=== PATIENT | female | born 1990 | race Caucasian/White ===

== ENCOUNTER → 2017-09-17 16:48 | Outpatient (CLI) | payer OTHER, SELFPAY ==
[2017-09-23 06:07] LABS: Almond <0.10 kU/L (Class 0); Apple <0.10 kU/L (Class 0); Beef <0.10 kU/L (Class 0); Carrot <0.10 kU/L (Class 0); Chicken <0.10 kU/L (Class 0); Clam <0.10 kU/L (Class 0); Codfish <0.10 kU/L (Class 0); Corn <0.10 kU/L (Class 0); Egg, White <0.10 kU/L (Class 0); Egg, Whole <0.10 kU/L (Class 0); Garlic <0.10 kU/L (Class 0); Gluten <0.10 kU/L (Class 0); Milk (Cow) <0.10 kU/L (Class 0); Peanut <0.10 kU/L (Class 0); SESAME SEED <0.10 kU/L (Class 0); Shrimp <0.10 kU/L (Class 0); Soybean <0.10 kU/L (Class 0); Strawberry <0.10 kU/L (Class 0); Tuna <0.10 kU/L (Class 0); Walnut, (Food) <0.10 kU/L (Class 0); Wheat <0.10 kU/L (Class 0); Yeast <0.10 kU/L (Class 0)
[2017-09-23 08:53] LABS: Banana <0.10 kU/L (Class 0)
[2017-09-23 10:26] LABS: Tomato <0.10 kU/L (Class 0); Wheat <0.10 kU/L (Class 0)
[2017-09-23 11:02] LABS: Immunoglobulin E 3 IU/mL (0-100)
[2017-09-29 14:58] LABS: Milk (Cow) <0.10
[2017-09-29 14:59] LABS: Soybean <0.10
== END ==
PROVIDERS: Family Provider Internal Medicine; PCP Internal Medicine; Visit Provider Otolaryngology Otolaryngology/Facial Plastic Surgery
DX: T78.40XA Allergy, unspecified, initial encounter (principal)
CPT/HCPCS: 36415; 82785; 86003; 86005

== ENCOUNTER → 2018-10-29 16:23 | Outpatient (CLI) | payer OTHER, SELFPAY ==
[2014-06-29 21:51] VITALS: BMI 18.0
[2018-11-03 14:41] LABS: HPV Reflexed? NOT INDICATED
== END ==
PROVIDERS: PCP Internal Medicine; Visit Provider Obstetrics & Gynecology
DX: Z12.4 Encounter for screening for malignant neoplasm of cervix (principal)
CPT/HCPCS: 88175; G0145

== ENCOUNTER → 2018-12-11 09:27 | Outpatient (CLI) | payer OTHER, SELFPAY ==
[2018-12-11 10:37] LABS: hCG Titer Quant., Serum < 1 mIU/mL (1-3)
== END ==
PROVIDERS: Visit Provider Obstetrics & Gynecology
DX: N97.0 Female infertility associated with anovulation (principal)
CPT/HCPCS: 36415; 84702

== ENCOUNTER 2021-10-04 07:04 | Outpatient (CLI) | payer OTHER, SELFPAY ==
[2021-10-04 08:55] LABS: Hematocrit 41.1 % (37-47); Hemoglobin 13.5 g/dL (12.0-15.0); Mean Corp Hgb Conc 32.8 g/dL (32-36); Mean Corpuscular Volume 85.1 fL (81-99); Platelet Count 189 K/mm3 (150-450); RBC Distribution Width CV 13.4 % (11.6-14.6); RBC Distribution Width SD 41.8 fl (35.1-43.9); Red Blood Count 4.83 M/mm3 (4.2-5.4); White Blood Count 4.3 K/mm3 (4.4-11.0)
[2021-10-04 09:29] LABS: Estradiol 66.6 pg/mL; Follicle Stimulating Hormone 6.3 mIU/mL; Prolactin 7.4 ng/mL; Thyroid Stim Hormone (TSH) 1.38 uIU/mL (0.358-3.74)
[2021-10-10 16:17] LABS: 17-Hydroxyprogesterone 53 ng/dL (.)
== END 2021-10-04 23:59 | disposition home or self-care (01) ==
PROVIDERS: Referring Provider Obstetrics & Gynecology; Visit Provider Obstetrics & Gynecology
DX: E28.1 Androgen excess (principal); L70.8 Other acne; E28.8 Other ovarian dysfunction; N92.0 Excessive and frequent menstruation with regular cycle
CPT/HCPCS: 36415; 82533; 82627; 82670; 83001; 83498; 84146; 84270; 84403; 84443; 85027; 82626

== ENCOUNTER 2021-10-22 07:06 | Outpatient (CLI) | payer OTHER, SELFPAY ==
[2021-10-22 08:43] LABS: Estradiol 72.8 pg/mL
[2021-10-22 09:04] LABS: Progesterone Level 17.61 ng/mL (See Comment)
== END 2021-10-22 23:59 | disposition home or self-care (01) ==
LOC: LAB 07:07
PROVIDERS: Referring Provider Obstetrics & Gynecology; Visit Provider Obstetrics & Gynecology
DX: E28.8 Other ovarian dysfunction (principal)
CPT/HCPCS: 36415; 82670; 84144

== ENCOUNTER → 2021-12-28 | Outpatient (CLI) | payer OTHER, SELFPAY ==
--- NOTE | 2021-12-28 10:45 | MRI_ITS ---
STUDY: MR PELVIS WITH T WITHOUT CONTRAST REASON FOR EXAM: Female, 31 years old. PELVIC PAIN ,ENDOMETRIOSIS TECHNIQUE: Standardized fat and water weighted pulse sequences were obtained in all 3 orthogonal planes, pre-and post contrast administration. IV 10cc dotarem was administered for the contrast portion of the examination. Gentle contrast inserted into the vaginal vault prior imaging. COMPARISON: None. FINDINGS: Normal urinary bladder. Hollow viscus structures are unremarkable in their visualized extent. There is no pelvic fluid. There is no pelvic mass lesion or lymphadenopathy. Uterus is anteverted. The uterus measures 3.6 x 3.8 x 6.6 cm. Endometrial complex measures 7.6 mm in thickness and is homogenous throughout the uterine canal. No cervical masses are seen. Small nabothian cyst present. There are follicles of the bilateral ovaries without dominant cyst or complex lesion. No adnexal cyst or dilated fallopian tubes. Smooth contours of the vaginal vault without discrete focal mass. No abnormal contrast enhancement. Normal visualized pelvic arteries. Normal osseous structures. Normal abdominal wall. MRI/Pelvis W/WO Contrast IMPRESSION: 1. Normal female pelvis MRI. Electronically Signed: Dg Ochoa MD (Brooks) at 8:29 EDT Reading Location ID and State: / [place] , Service support ,
== END | disposition home or self-care (01) ==
PROVIDERS: Visit Provider Obstetrics & Gynecology
DX: R10.2 Pelvic and perineal pain (principal); N80.9 Endometriosis, unspecified; N92.0 Excessive and frequent menstruation with regular cycle; N94.6 Dysmenorrhea, unspecified
CPT/HCPCS: 72197; A9575

== ENCOUNTER 2022-01-11 11:07 | Day surgery (SDC) | payer OTHER, SELFPAY ==
[2022-01-08 10:34] LABS: Hematocrit 39.2 % (37-47); Hemoglobin 13.1 g/dL (12.0-15.0); Mean Corp Hgb Conc 33.4 g/dL (32-36); Mean Corpuscular Hgb 28.5 pg (27.0-32.0); Mean Corpuscular Volume 85.4 fL (81-99); Mean Platelet Vol. 11.4 fl (6.2-12.0); Platelet Count 212 K/mm3 (150-450); RBC Distribution Width CV 13.4 % (11.6-14.6); Red Blood Count 4.59 M/mm3 (4.2-5.4); White Blood Count 7.4 K/mm3 (4.4-11.0)
[2022-01-08 10:47] LABS: Prothrombin Time (Protime)PT. 12.8 SECONDS (11.7-14.9)
[2022-01-08 10:48] LABS: Partial Thromboplast Time 28.5 Seconds (24.1-36.2)
[2022-01-08 11:45] LABS: AST(SGOT) 13 U/L (15-37); Alanine Aminotransfer ALT/SGPT 18 U/L (13-56); Albumin, Serum 4.5 g/dL (3.2-5.0); Alkaline Phosphatase 57 U/L (45-117); Bilirubin, Direct 0.14 mg/dL (0.00-0.30); Globulin 2.8 g/dL (2.2-4.2); Protein, Total 7.3 g/dL (6.4-8.2)
[2022-01-11] VITALS (8 sets, daily range): BP systolic 107–136; BP diastolic 53–80; PULSE 70–92; RESP 16–18; TEMP 36.6–37.1; O2SAT 99–100; BMI 17.7
--- NOTE | 2022-01-11 | MISC_PTH ---
PATIENT: DEAN DORSEY LOC: [facility] [place] U#:[id number] AGE/SX: 31/F ROOM: RE01/11/[address]: Dr. nAa Sarabia MD : 1990 BED: DIS: 01/11/2022 SPEC #: [id number] RECD: 01/14/22 06:41 STATUS: MERI REQ #: [id number] RAJESH: 01/11/22 00:[address]: Ana Berger DEPT: SURGICAL PATHOLOGY RECD BY: Efe Stanley ENTERED: 01/14/22 08:57 SP TYPE: [facility] [place]: Bruna Primary Care Phys Tissues: A - Peritoneum, NOS B - Peritoneum, NOS C - Peritoneum, NOS D - Peritoneum, NOS Procedures: Surgery Specimen Level IV HEADER OPERATION: Diagnostic laparoscopy with surgical treatment of endometriosis PRE-OP DIAGNOSIS: Dysmenorrhea, dyspareunia, endometriosis, pelvic and perineal pain TISSUE SUBMITTED: A ? Left posterior broad ligament endometriosis, B ? Ureteral peritoneal endometriosis, C ? Right uterosacral endometriosis, D ? Anterior cul-de-sac endometriosis MICROSCOPIC DIAGNOSIS A. Left posterior broad ligament endometriosis, biopsy: Endometriosis. B. Ureteral peritoneal endometriosis, biopsy: Endometriosis. C. Right uterosacral endometriosis, biopsy: Endometriosis. D. Anterior cul-de-sac endometriosis, biopsy: Focal changes suspicious for endometriosis. SJ:beena 01/15/2022 COMMENT Clinical correlation and appropriate follow up are necessary. MICROSCOPIC DESCRIPTION Slides are reviewed. GROSS DESCRIPTION A - Received in fixative is one container labeled with the patient's name and designated left posterior broad ligament endometriosis. The specimen consists of two pieces of pink, congested soft tissue that in aggregate measure 1.5 x 1.2 x 0.3 cm. The specimen is totally submitted in one cassette. B - Received in fixative is one container labeled with the patient's name and designated ureteral peritoneal endometriosis. The specimen consists of a piece of pink, congested soft tissue measuring 2 x 1 x 0.2 cm. The specimen is totally submitted in one cassette. C - Received in fixative is one container labeled with the patient's name and designated right uterosacral endometriosis. The specimen consists of a piece of pink, congested soft tissue measuring 1.8 x 1 x 0.2 cm. The specimen is totally submitted in one cassette. D - Received in fixative is one container labeled with the patient's name and designated anterior cul-de-sac endometriosis. The specimen consists of one irregular fragment of light henderson soft tissue that measures 0.4 x 0.4 x 0.2 cm. The specimen is totally submitted in one cassette. / SJ:rg 01/14/2022 TC:5 CPT: 20544 x4
--- NOTE | 2022-01-11 07:45 | HP.PCM.OB_ITS ---
History and Physical Date of Admission: 01/11/22 Surgical History and Physical Date: 01/08/2022 Name: DEAN DORSEY Age: 31 Date of : 1990 Dean Dorsey, a 31 year old female 0 0 0 0 0, presents for Diagnostic laparoscopy, surgical treatment of endometriosis on January 11, 2022 for history of dysmenorrhea and dyspareunia. MEDICATIONS HISTORY: Patient is also takin. ibuprofen 600 mg tablet, 1 tab po q 12hrs PRN 2. Ventolin HFA 90 mcg/actuation aerosol inhaler, As Directed ALLERGIES: NKA Infections - Chicken pox Illnesses - allergies, asthma and ADD Accidents - no injuries of consequence Hospitalizations - None Review of Systems: GENERAL - Denies fever, or chills SKIN - Denies skin changes EYES - Denies visual changes EARS - Denies difficulty hearing NOSE - Denies nasal congestion or bleeding MOUTH - Denies sore throat or difficulty swallowing NECK - Denies pain or swelling RESPIRATORY - Denies shortness of breath or wheezing CARDIOVASCULAR - Denies palpitations or chest pain GASTROINTESTINAL - Denies nausea, vomiting, diarrhea, constipation GENITOURINARY - irregular bleeding and pain MUSCULOSKELETAL - Denies joint or muscle pain NEUROLOGICAL - Denies localized numbness or weakness PSYCHIATRIC - Denies depression or anxiety ENDOCRINE - Denies heat or cold intolerance, weight loss or gain HEMATO-IMMUNOLOGIC - Denies excesive bleeding with cuts SOCIAL HISTORY: Alcohol Use - drinks occasionally Smoking - denies use Diet - no special diet Lifestyle - Exercise - active Seat Belt Use - always Employer - [employer] Job Description - customer service Illicit Drug Use - denies use of street drugs Sexual Activity - Hours Worked - 40 Control - - FAMILY HISTORY: Maternal history of Heart Disease. Paternal history of DM II and Heart Disease. MENSTRUAL HISTORY: LMP Known?- ApproximateAmount/Duration - 3-10 days, Regularity - Regular, Frequency - 28 days, LMP - 12/17/21, Age Onset Menarche - 13 PAST PREGNANCIES: Total Pregnancies - 0; Full Term Pregnancies - 0; Premature - 0; Abortions, Induced - 0; Abortions, Spontaneous - 0; Ectopics - 0; Multiple Births - 0; Living Children - 0 SURGICAL HISTORY: 1. [place], 2007 ; Dr. Wise - 2. [place] teeth removed 08/2009 ; - PHYSICAL EXAM BP- 140/86 Sitting, Right arm, regular cuff Weight- 111.61557 lbs Height- 61.5 inch BMI:[id number] CONSTITUTIONAL - NAD, well nourished, and well developed SKIN - No rash, lesions, or ulcers HEENT - Normocephalic, PERRLA, EOMI LUNGS - CTA x2 without wheezes, crackles or rales CARDIAC - Regular rate and rhythm without rubs, murmurs, or gallops EXTREMITIES - No edema or calf tenderness NEUROLOGICAL - normal gait, normal balance, normal motor PSYCHIATRIC - A and O to time, place, person, mood and affect ASSESSMENT/PLAN: 1. Dysmenorrhea, Dyspareunia, Endometriosis, Unspecified and Pelvic And Perineal Pain Suspect endometriosis Recent MRI with no evidence of deep pelvic endometriosis Plan for diagnostic laparoscopy, surgical treatment of endometriosis as indicated Procedural r/b/i/a reviewed Consents signed Pre and postop instructions reviewed Assessment & Plan Assessment/Plan (1) Dysmenorrhea: PLAN: Plan for diagnostic laparoscopy and surgical treatment of endometriosis as indicated (2) Dyspareunia in female:
[2022-01-11 11:49] LABS: Internal QC Validated? YES +Cl - CLEAR BKGD; Pregnancy, Urine Negative Negative
[2022-01-11] MEDS: Lactated Ringers 1,000 ML 125 ML IV ×2 (12:06→16:30)
[2022-01-11] MEDS: Ipratropium/Albuterol Sulfate 3 ML AMPUL.NEB INHALATION (13:19)
[2022-01-11] MEDS: Bupivacaine Mpf 0.5% 30 ML VIAL (14:45)
--- NOTE | 2022-01-11 17:08 | DCINST_ITS ---
Discharge Instructions Diet Discharge Diet: No restrictions Activity Discharge Activity: Return to Normal Activity May resume sexual activity in: 4 weeks Lifting Restrictions: 10 lb Dressing / Incision Call your doctor if your incision/area has: Continuous Slow Oozing, Sudden Increased Bleeding, Increased Pain/ Swelling, Increased Redness, Foul Smelling Discharge and Swelling at the incision site Call your doctor if you observe: Fever of 101 or Higher, Inability to urinate, Inability to have a bowel movement, Shortness of breath, Chest pain, Calf dis comfort and Uncontrolled pain Remove Dressing in: 2 days Cleanse incision/area with: Soap & Water Follow Up Care Please Follow Up With: Ana Berger MD When: 1-2 weeks Test Results: Test results from this visit will be discussed in further detail at your follow- up appointment, if applicable. Discharge Plan Admission Primary Reason for Your Visit: Laparoscopy for Endometriosis Attending Provider: Ana Berger Primary Care Provider: Jojo PhysicianBruna Primary Instructions Patient Instructions: Endometriosis Lap Tx Dc Discharge Orders/Prescriptions Prescriptions: No Action zinc 15 mg Tablet 15 mg PO DAILY ibuprofen 200 mg Tablet 200 mg PO Q6H PRN (Reason: Pain) chaste tree 20 mg Tablet 40 mg PO DAILY pantothenic acid (vit B5) 250 mg Capsule PO DAILY Fish Oil Capsule 2,000 mg PO DAILY acetaminophen 325 mg Capsule 650 mg PO Q6H PRN (Reason: Pain) albuterol sulfate 90 mcg/actuation Aerosol Powdr Breath Activated 1 inh INHALATION Q6H PRN (Reason: Pain) Referrals / Follow Up: Care Physician,No Primary [Primary Care Provider] - Disposition Disposition (needs filled in before D/C Order can be placed): Home, Self Care
--- NOTE | 2022-01-11 17:10 | PCM.OPRPT ---
Problems Associated Problem List Diagnoses (1) Endometriosis determined by laparoscopy: (2) Dyspareunia in female: (3) Dysmenorrhea: Report of Operation Date of Procedure: 01/11/22 Pre-Operative Diagnosis: 1. Dysmenorrhea 2. Dyspareunia Post-Operative Diagnosis: 1. Dysmenorrhea 2. Dyspareunia 3. Endometriosis Surgery/Procedure Performed:: 1. Diagnostic laparoscopy 2. Peritoneal biopsy with excision of endometriosis 3. Ureterolysis 4. Fulgaration of endometriosis 5. Chromotubation Description of Surgical Findings:: Right ovarian fossa peritoneal endometriosis extending to posterior broad ligament, left ovarian fossa, ureteral peritoneum/uterosacral ligament with cystic endometriosis implants, small endometriosis cysts on ovary, anterior culdesac endometriosis, posterior culdesac endometriosis Surgeon: Ana Berger transfer controller: Edel Casillas Type of Anesthesia: General Anesthesiologist: Jony Chow Specimen's removed: 1. right posterior broad ligament/ovarian fossa endometriosis 2. right utereral/uterosacral ligament endometriosis 3. Left ovarian fossa peritoneum 4. Anterior culdesac endometriosis Estimated Blood Loss (mL): 10 Fluids Replaced: 1200 ml Description of Procedure: 31yo nulligravid with history of chronic pelvic pain and worsened dysmenorrhea over 2 years. She poorly tolerated hormonal contraception in the past and desired . She was counseled regarding management options and opted to proceed with diagnostic laparoscopy, surgical treatment of endometriosis as indicated. Procedural risks, benefits, indications and alternatives were reviewed with informed consent obtained. Patient was brought to the operating room and sign in performed. She was placed dorsal supine and induced under general anesthesia and intubated. She was repositioned into dorsal lithotomy and examination under anesthesia was performed. The perineum and abdomen were prepped and draped in sterile fashion.? The patient was placed into high lithotomy and a speculum placed vaginally. The uterus was sounded and a ZUMI uterine manipulator was placed and secured. The tenaculum and speculum were removed and the patient placed into low lithotomy. Attention was turned to the abdomen and 0.5% marcaine injected subcutaneously at the inferior umbilicus. An incision was made here and Veress needle introduced with successful hang drop and no aspirate. The abdomen was insufflated to 12 mmHg. The Veress needle was removed and a 5mm port introduced abdominally with laparoscopic guidance. A TAP block was performed with laparoscopic guidance in the left lower quadrant and incision placed with transillumination. A second 5mm port was placed here and the abdomen and pelvis inspected with evidence of pelvic endometriosis including small bilateral endometriosis cysts on the ovaries, uterosacral ligament endometriosis cysts, posterior and anterior culdesac and bilateral ovarian fossa endometriosis, left posterior broad ligament endometriosis. The tubes and ovaries were otherwise normal in appearance. Five mm ports were subsequently placed in the right lower quadrant and suprapubically after administering marcaine. The patient was placed into Trendelenberg. The left ureteral course was identified and I proceeded with removal of the left ovarian fossa peritoneum and adjacent Wes Masters window extending into the posterior broad ligament using electrocoagulation on the J hook, as well as blunt dissection with left ureterolysis performed.? Distal and proximal left uterosacral ligament peritoneal excision with associated endometriosis implants were also removed with the ureter visualized during the excision and dissection. An EEA sizer was placed? then removed to further delineate the margins of the posterior culdesac endometriosis. Due to proximity to the rectum these lesions were electrocoagulated. The right ureter was identified and the right ovarian fossa and right uterosacral peritoneum and its endometriosis was excised using electrocoagulation of the margins and blunt dissection. An anterior midline adhesion from the anterior culdesac endometriosis to the anterior uterus was lysed and small superficial clear micellar anterior culdesac endometriosis was electrocoagulated. A deeper powder burn lesion at the anterior culdesac peritoneum was excised. The sub centimeter ovarian endometriosis cysts were electrocoagulated, one on the left and three on the right, with further electrocoagulation of the small cyst beds. The left posterior broad ligament peritoneum edge and left uterosacral peritoneal edges were reapproximated with closure of the left ovarian fossa using 3-0 V-lock suture. Similarly, the right ovarian fossa and uterosacral ligament peritoneal edges were reapproximated. Chromotubation was subsequently performed with bilateral? tubal spill of dilute methylene blue into the abdomen. The abdomen was irrigated and suctioned. Interceed was placed over the sutured sites and the posterior culdesac. The procedure was complete. The abdomen was desufflated and the ports removed. The skin was closed with 4-0 Monocryl by the CAD DRAFTSMAN under my supervision and derma kitchen placed over the incisions. The cevallos catheter and uterine manipulators were removed. The patient was placed into dorsal supine, awakened, extubated and transferred to the recovery room without complication.? Complications None Admit VTE Documentation VTE Present on Admission: No VTE Mechan Device Prophylaxis: SCD's VTE Pharm Prophylaxis ordered?: No
--- NOTE | 2022-01-11 18:31 | SUR.PHASEI ---
HEMATOLOGY NURSE EDUCATOR Marti signed into PACU computer as pt arrived to PACU. Computer kept Marline Key RN logged in, but it was not noted until pt was being discharged from PACU, and therefore, PACU charting has Marline's name attached to it. Marti FITCH was the HEMATOLOGY NURSE EDUCATOR assessing pt, caring for pt and charting.
== END 2022-01-11 19:17 | disposition home or self-care (01) ==
LOC: SDC 11:09 → AC 11:11
PROVIDERS: Anesthesiology; Visit Provider Obstetrics & Gynecology
PROC: (CPT 49320; principal; 2022-01-11 12:45)
DX: N94.6 Dysmenorrhea, unspecified (principal); N80.0 Endometriosis of uterus; N83.209 Unspecified ovarian cyst, unspecified side; J45.909 Unspecified asthma, uncomplicated; R10.2 Pelvic and perineal pain; N94.10 Unspecified dyspareunia; N80.3 Endometriosis of pelvic peritoneum
CPT/HCPCS: 58662; 58350; 00840; 80076; 81025; 85027; 85610; 85730; 86850; 86900; 86901; 88305; 94640; J7120; J2405; Q9968

== ENCOUNTER → 2024-02-04 | Outpatient (CLI) | payer OTHER, SELFPAY ==
[2024-02-04 08:53] LABS: Absolute Lymphocyte Count 1.59 X10^3/uL (0.83-4.51); Absolute Neutrophil Count 2.2 X10^3/uL (2.0-7.7); Basophil# 0.04 X10^3/uL; Basophil% 0.9 % (0-1); Eosinophil# 0.09 X10^3/uL; Eosinophils% 2.1 % (0-5); Hematocrit 40.9 % (37-47); Hemoglobin 13.7 g/dL (12.0-15.0); Lymphocyte # 1.59 X10^3/ul (0.83-4.51); Lymphocyte % 37.3 % (19-41); Mean Corp Hgb Conc 33.5 g/dL (32-36); Mean Corpuscular Hgb 28.3 pg (27.0-32.0); Mean Corpuscular Volume 84.5 fL (81-99); Mean Platelet Vol. 11.6 fl (6.2-12.0); NRBC Flagged by Analyzer 0 % (0-5); Neutrophil # 2.23 X10^3/uL (2.7-7.7); Neutrophil % 52.5 % (47-70); Platelet Count 162 K/mm3 (150-450); RBC Distribution Width SD 39.8 fl (35.1-43.9); Red Blood Count 4.84 M/mm3 (4.2-5.4); White Blood Count 4.3 K/mm3 (4.4-11.0)
[2024-02-04 09:22] LABS: ALB/GLOB Ratio 1.6 RATIO (0.9-2.4); AST(SGOT) 19 U/L (15-37); Alanine Aminotransfer ALT/SGPT 14 U/L (13-56); Albumin, Serum 4.5 g/dL (3.2-5.0); Alkaline Phosphatase 67 U/L (45-117); Anion Gap 9 (5-15); BUN 10 mg/dL (7-18); BUN/Creat Ratio 16.4 RATIO (10-20); Calcium,Total 9.5 mg/dL (8.5-10.1); Chloride 106 mmol/L (98-107); Cholesterol 160 mg/dL (200); Creatinine, Serum 0.61 mg/dL (0.55-1.02); EST Glomerular Filtration Rate 120 mL/min (>60); Est Glom Filt Rate - Afr Amer 145 mL/min (>60); Globulin 2.8 g/dL (2.2-4.2); Glucose 84 mg/dL (74-106); High Density Lipoprotein 74 mg/dL; Potassium 3.6 mmol/L (3.5-5.1); Protein, Total 7.3 g/dL (6.4-8.2); Sodium Level 137 mmol/L (136-145); Triglycerides 46 mg/dL; Very Low Density Lipoprotein 9 mg/dL (5-40)
[2024-02-04 09:40] LABS: Vitamin D,25 Hydroxy 26.6 ng/mL
== END | disposition home or self-care (01) ==
PROVIDERS: PCP Nurse Practitioner Family; Referring Provider Nurse Practitioner Family; Visit Provider Nurse Practitioner Family
DX: Z00.01 Encounter for general adult medical examination with abnormal findings (principal); E55.9 Vitamin D deficiency, unspecified
CPT/HCPCS: 36415; 80053; 80061; 82306; 85025

== ENCOUNTER → 2024-02-11 | Outpatient (CLI) | payer OTHER, SELFPAY ==
--- NOTE | 2024-02-11 07:42 | US_ITS ---
STUDY: ABDOMINAL ULTRASOUND REASON FOR EXAM: Female, 33 years old. ASSESS GALLBLADDER - right upper quadrant pain. TECHNIQUE: Transabdominal ultrasound was performed with real-time and static calix scale imaging. TECHNICAL QUALITY: Adequate. COMPARISON: None. FINDINGS: Liver: The liver measures 16.5 cm. There is normal echogenicity of the liver. The bile ducts are within normal limits. There is hepatic color flow. The direction of portal flow is hepatopetal. There is no demonstrated mass lesion. Gallbladder: Normal distended gallbladder. The gallbladder wall measures 2.4 mm. There is a negative sonographic Arevalo''s sign. There is no pericholecystic fluid. There are no gallstones. Findings suggestive of a 3 mm x 4 mm x 3 mm gallbladder polyp adherent to the gallbladder wall. Common Bile Duct (C.B.D.): The common bile duct measures 4.9 mm. Pancreas: Normal size of the head, body and tail of the pancreas. There is normal echogenicity of the pancreas. There is no demonstrated pancreatic mass or cyst. Spleen: Normal size of the spleen. The spleen measures 9.8 cm x 4.8 cm x 3.6 cm. Right Kidney: Normal size of the right kidney. The right kidney measures 11.8 cm x 4.5 cm x 3.6 cm. Normal renal cortex. The right cortex measures 1.1 cm. There is no demonstrated renal mass or cyst. There is no right hydronephrosis. Left Kidney: Normal size of the left kidney. The left kidney measures 10.8 cm x 4.6 cm x 4.6 cm. Normal renal cortex. The left cortex measures 2.2 cm. There is no demonstrated renal mass or cyst. There is no left hydronephrosis. Aorta: Unremarkable I.V.C.: The IVC is patent. There is no ascites. US/Abdomen Complete IMPRESSION: Findings suggestive of a 3 mm x 3 mm x 4 mm gallbladder polyp. Electronically Signed: Jaxson Llanes MD at 14:35 EDT ,
== END | disposition home or self-care (01) ==
PROVIDERS: PCP Nurse Practitioner Family; Referring Provider Nurse Practitioner Family; Visit Provider Nurse Practitioner Family
DX: R10.11 Right upper quadrant pain (principal); K62.89 Other specified diseases of anus and rectum
CPT/HCPCS: 76700

== ENCOUNTER 2024-03-07 22:51 | Emergency (ER) | payer OTHER, SELFPAY ==
[2024-03-07 22:52] VITALS: BP 148/91; PULSE 126; RESP 20; TEMP 36.4; O2SAT 100; BMI 19.6
--- NOTE | 2024-03-07 23:10 | EX.ED.DYSGE1 ---
HPI History of Present Illness Chief Complaint: Allergic Reaction [facility] Medical History (Updated 01/11/22 @ 17:[address] Ana Sarabia MD) Wears glasses Wears contact lenses Alcohol use Easy bruising Migraine headache Non-smoker Asthma Seasonal allergies PONV (postoperative nausea and vomiting) Home Medications ?Medication ?Instructions ?Recorded ?Last Taken ?Type acetaminophen 325 mg capsule 650 mg PO Q6H PRN Pain 01/07/22 Unknown History albuterol sulfate 90 mcg/actuation 1 inh inhalation Q6H PRN Pain 01/07/22 01/11/22 History breath activated powder inhaler chaste tree 20 mg tablet 40 mg PO DAILY supplement 01/07/22 Unknown History ibuprofen 200 mg tablet 200 mg PO Q6H PRN Pain 01/07/22 Unknown History omega-3 fatty acids 2,000 mg PO DAILY 01/07/22 Unknown History pantothenic acid (vit B5) 250 mg mg PO DAILY 01/07/22 Unknown History capsule zinc 15 mg tablet 15 mg PO DAILY 01/07/22 Unknown History prednisone 20 mg tablet 20 mg PO BID 03/07/24 Unknown History Allergy/AdvReac Type Severity Reaction Status Date / Time bee venom protein (honey Allergy Intermediate Other Verified 03/07/24 22:52 bee) (bee sting) Surgical History (Updated 01/07/22 @ 14:57 by Marti Martins) History of wisdom tooth extraction History of tonsillectomy Social History Smoking Status: Never smoker EXAM Physical Exam Const Vital Signs: 03/07/24 22:52 03/07/24 23:39 Temperature 97.6 F L Temperature Source Temporal Pulse Rate 126 H 73 Respiratory Rate 20 H 16 Blood Pressure 148/91 H Blood Pressure Mean 110 Pulse Ox 100 97 Oxygen Delivery Method Room Air Room [place] [facility] [place] Medical decision making narrative: HISTORY OF PRESENT ILLNESS: 33-year-old female presents concern for allergic reaction. States she was stung by bee yesterday. No she went to urgent care as prescribed prednisone. She is taking 1 today. She also took Benadryl prior to arrival. She is concerned because her throat was like it swelling and is sore. REVIEW OF SYSTEMS: Pertinent positives: Throat swelling, soreness Pertinent negatives: Drooling, difficulty breathing, abdominal pain, nausea PHYSICAL EXAM: Nursing triage notes reviewed, Vital signs reviewed Constitutional: please see mdm HENT: MMM Eyes: Pupils equal round and reactive to light, Extraocular muscles intact Neck: No stridor, no JVD, full neck ROM Lungs: Clear to auscultation, No wheezing or rales. No increased work of breathing, no conversational dyspnea, no accessory muscle use, no nasal flaring. No respiratory distress noted Heart: Regular rate and rhythm, No murmurs, No rubs and No gallops, 2+ distal pulses (radial, femoral, posterior tibial) in all extremities Abdomen: Soft, there is no tenderness, rigidity, rebound or guarding, no obvious peritoneal signs, no palpable pulsatile abdominal masses, no auscultated abdominal bruit : No CVAT Extremities: No edema Neuro: No focal neurological deficits, cranial nerves II through XII intact, 5/5 strength in all extremities. Intact sensation to light touch in all extremities, 2+ reflexes bilateral patella tendons. Normal gait. No ataxia. Skin: No rash or lesions noted MEDICAL DECISION MAKING: Chief Complaint: Evaluation for allergic reaction External records reviewed: No recent ED visits Factors affecting care: Bee allergy Social determinants of health: Denies illicit drug use History obtained from others: The patient's Consults: Pharmacy to discuss H1 histamine blockade MDM Narrative: Patient was initially tachycardic, tachypneic. Exam without evidence of stridor, drooling, urticaria. There is no respiratory distress. Patient no symptoms of nausea abdominal pain or wheezing. No signs of anaphylaxis. Given this is 33 hours after initial encounter with to be a do not suspect the patient is even suffering from severe allergic reaction. His only local swelling over the left hand. There is no signs of cellulitis. Patient was given loratadine (H1 paul), Pepcid (H2 paul) for symptomatic control. I considered the following differential diagnosis: Allergic reaction, anaphylaxis, anxiety The patient and/or family, caregivers express understanding. The patient and/or family, caregivers agrees with the plan. Shared decision making: I will have a discussion with the patient and or visitors regarding risk/benefits of further testing or admission. They will be made aware of of the risk/benefits inherent in this decision they will be given the opportunity to voice understanding. Total critical care time today provided was at least 0 minutes. This excludes separately billable procedures. Critical care time (if documented) is secondary to the patient having high probability of clinically significant/life threatening deterioration in the patient's condition which required my urgent intervention. Impression: 1. Allergic reaction 2. Bee allergy Dispo: Discharge home This note was generated with FRAMED dictation software. It may contain incorrect words, spelling, and punctuation that were not noted in review of the chart prior to signing. Discharge Plan Triage Chief Complaint: Allergic Reaction ED Provider: Alberto Rosales Dx/Rx/DC Orders Instructions: ED BEE STING General Allergic Rxn Prescriptions: No Action zinc 15 mg Tablet 15 mg PO DAILY ibuprofen 200 mg Tablet 200 mg PO Q6H PRN (Reason: Pain) chaste tree 20 mg Tablet 40 mg PO DAILY pantothenic acid (vit B5) 250 mg Capsule PO DAILY omega-3 fatty acids Capsule 2,000 mg PO DAILY acetaminophen 325 mg Capsule 650 mg PO Q6H PRN (Reason: Pain) albuterol sulfate 90 mcg/actuation Aerosol Powdr Breath Activated 1 inh INHALATION Q6H PRN (Reason: Pain) prednisone 20 mg tablet 20 mg PO BID Primary Care Provider: Ayana Hillman Referrals: Ayana Hillman, PRODUCTION WELDING SUPERVISOR-C [Primary Care Provider] - Activity Restrictions/Additional Instructions: Thank you for trusting us with your care today! Please take Tylenol (2 pills, 650 mg), ibuprofen (2 pills, 400 mg) every 6 hours as needed for pain and fever control. Please take Zyrtec (cetirizine) or Claritin (loratadine) or Renetta (fexofenadine) for H1 blockade. Please take Pepcid for H2 blockade. You can also take Benadryl for H1 blockade however it does have a higher side effect profile than Zyrtec, Claritin or Renetta. Please continue take prednisone as prescribed. Please return to the emergency department if your symptoms change or worsen. Specifically develop tightness or pain in your throat or chest, loud upper airway noises we call stridor, difficulty breathing, drooling, if you lose consciousness. Please follow with your primary care physician for further outpatient evaluation and management. Print Language: Bahraini Disposition Disposition: Home, Self Care
[2024-03-07 23:39] VITALS: PULSE 73; RESP 16; O2SAT 97
[2024-03-07] MEDS: Famotidine 20 MG Tablet PO (23:40)
[2024-03-08] MEDS: Loratadine 10 MG Tablet 5 MG PO (00:10)
[2024-03-08 00:11] VITALS: BP 111/68; PULSE 72; RESP 16; TEMP 36.7; O2SAT 98
== END 2024-03-08 00:17 | disposition home or self-care (01) ==
PROVIDERS: Emergency Provider Emergency Medicine; PCP Nurse Practitioner Family; Visit Provider Emergency Medicine
DX: R07.0 Pain in throat (principal); R06.82 Tachypnea, not elsewhere classified; T63.441A Toxic effect of venom of bees, accidental (unintentional), initial encounter; J45.909 Unspecified asthma, uncomplicated; Z79.52 Long term (current) use of systemic steroids
CPT/HCPCS: 99283

== ENCOUNTER → 2024-03-15 | Outpatient (CLI) | payer OTHER, SELFPAY ==
--- NOTE | 2024-03-15 07:55 | CT_ITS ---
STUDY: CT ABDOMEN AND PELVIS WITH CONTRAST REASON FOR EXAM: Female, 33 years old. ONGOING RECTAL PAIN,HX OF OF EMDOMETRIOSIS RADIATION DOSAGE (If Supplied By Facility): CTDIvol = ( 8.52 ) mGy, DLP = ( 351.67 ) mGycm TECHNIQUE: Transaxial images were obtained from the dome of the diaphragm to the symphysis pubis without oral contrast. IV 100mL Isovue-370 was administered. Sagittal and coronal images were reconstructed. Individualized dose optimization techniques were used for this CT. COMPARISON: None. FINDINGS: The visualized lung bases are unremarkable. The visualized portions of the heart are within normal limits. Normal liver. Normal gallbladder and extrahepatic biliary system. Normal spleen. Normal pancreas. Normal bilateral adrenal glands. Normal right kidney. Normal left kidney. Normal visualized stomach. Normal small intestine. Normal colon. The appendix is visualized and appears normal. Normal abdominal aorta. Normal inferior vena cava. Normal retroperitoneum. Normal urinary bladder. Normal abdominal wall. Normal osseous structures. CT/Abdomen/Pelvis WITH Contrast IMPRESSION: Normal enhanced CT of the abdomen and pelvis. Electronically Signed: Jaxson Llanes MD at 15:04 EDT ,
== END | disposition home or self-care (01) ==
LOC: CT 07:49
PROVIDERS: PCP Nurse Practitioner Family; Referring Provider Family Medicine; Visit Provider Family Medicine
DX: K62.89 Other specified diseases of anus and rectum (principal)
CPT/HCPCS: 74177; Q9967

== ENCOUNTER → 2024-03-18 | Outpatient (CLI) | payer OTHER, SELFPAY ==
--- NOTE | 2024-03-18 10:00 | NM_ITS ---
CLINICAL: 33-year-old female with history of abdominal pain. RADIONUCLIDE HEPATOBILIARY SCINTIGRAPHY COMPARISON: Abdominal ultrasound report 03/13/2024, CT of the abdomen-pelvis report 03/15/2024 FINDINGS: Following the intravenous administration of 5.4 mCi of 99m Tc Mebrofenin, hepatobiliary images reveal: 1. Relatively prompt and homogeneous radiopharmaceutical concentration is noted by a normal sized liver. No parenchymal defects are identified. 2. Gallbladder activity is identified at 10 minutes post radiopharmaceutical administration. 3. Small intestinal tract is observed at 30 minutes following tracer injection. 4. Washout of the radiopharmaceutical by the hepatic parenchyma appears qualitatively normal. Cholecystokinin (0.02 ug/kg) was administered intravenously over a 30-minute period. The post CCK gallbladder ejection fraction calculated at 20 minutes following Cholecystokinin administration was noted to be 26.0 % (normal greater than 35%). NM/Hepatobilliary Img w/Pharm Int IMPRESSION: 1. ABNORMAL 99m Tc Mebrofenin hepatobiliary imaging examination with Cholecystokinin. A. A gallbladder ejection fraction calculated to be less than 35% following the administration of Cholecystokinin is consistent with the presence of functional hepatobiliary disease (gallbladder and/or sphincter of Oddi dyskinesia) and/or organic hepatobiliary disease (chronic acalculous cholecystitis and/or cystic duct syndrome) in patients with intermediate to high pretest probabilities of hepatobiliary illness. (Anthony Moon et al, Journal of Nuclear Medicine 32:1695, 1991). Electronically Signed: Blane Singh DO at 11:41 EDT ,
== END | disposition home or self-care (01) ==
LOC: CT 09:56 → NM 09:59
PROVIDERS: PCP Nurse Practitioner Family; Referring Provider Nurse Practitioner Family; Visit Provider Nurse Practitioner Family
DX: K62.89 Other specified diseases of anus and rectum (principal); R10.11 Right upper quadrant pain
CPT/HCPCS: 78227; A9537; J2805